=== PATIENT | male | born 1995 | race Caucasian/White ===

== ENCOUNTER → 2024-03-09 08:48 | Outpatient (REF) | payer BC, SELFPAY ==
[2024-03-09 09:51] LABS: % Basophils 0.7 % (0-2); % Eosinophils 1.4 % (0-6); % Immature Granulocytes 0.2 % (0-0.5); % Lymphocytes 38.6 % (20.5-51.1); % Monocytes 4.8 % (1.7-9.3); % Neutrophils 54.3 % (42.2-75.2); Absolute Eosinophils 0.1 10^3/uL (0-0.7); Absolute Lymphocytes 1.6 10^3/uL (1.2-3.4); Absolute Monocytes 0.2 10^3/uL (0.1-0.6); Absolute Neutrophils 2.3 10^3/uL (1.4-6.5); Hematocrit 44.2 % (39.0-52.0); Hemoglobin 15.5 g/dL (13.0-18.0); Mean Corp Hgb Conc. 35.1 g/dL (33.0-37.0); Mean Corpuscular Hgb 30.6 pg (27.0-31.0); Mean Corpuscular Volume 87.2 fL (80.0-94.0); Mean Platelet Volume 10.2 fL (7.4-10.4); Nucleated Red Blood Cells % 0 % (-); Platelet Count 202 10^3/uL (130-400); Red Blood Cell Count 5.07 10^6/uL (4.70-6.10); Red Cell Dist. Width 12.3 % (11.5-14.5); White Blood Cell Count 4.2 10^3/uL (4.8-10.8)
[2024-03-09 10:18] LABS: ALT (SGPT) 19 U/L (0-50); AST (SGOT) 24 U/L (17-59); Albumin 5.1 g/dl (3.5-5.0); Alkaline Phosphatase 51 U/L (38-126); Blood Urea Nitrogen 18 mg/dl (9-20); Calcium 9.7 mg/dl (8.4-10.2); Carbon Dioxide 28 mmol/L (22-30); Chloride 101 mmol/L (98-107); Glucose 85 mg/dl (70-99); HDL Cholesterol 58 mg/dl; LDL Cholesterol, Calculated 67 mg/dl; Potassium 4.6 mmol/L (3.5-5.1); Sodium 139 mmol/L (135-145); Total Bilirubin 1.5 mg/dl (0.2-1.3); Total Cholesterol 136 mg/dl (50-199); Total Protein 7.5 g/dl (6.3-8.2); Triglyceride 59 mg/dl (10-149); Very Low Density Lipoprotein 11 mg/dl (0-30); eGFR > 60.00
[2024-03-09 10:42] LABS: TSH 1.15 uIU/ml (0.47-4.68)
== END ==
LOC: REG 08:48
PROVIDERS: ATTENDING PHYSICIAN Physician Assistant Medical
DX: Z00.00 Encounter for general adult medical examination without abnormal findings (principal)
CPT/HCPCS: 36415; 80053; 80061; 84443; 85025

== ENCOUNTER → 2024-09-05 15:43 | Outpatient (REF) | payer BC, SELFPAY | LOC: CLAB 15:43 | PROVIDERS: ATTENDING PHYSICIAN Dermatology Dermatopathology | DX: B07.8 Other viral warts (principal); L53.8 Other specified erythematous conditions | CPT/HCPCS: 88305 ==

== ENCOUNTER 2024-10-05 07:46 | Emergency (ER) | payer BC, SELFPAY ==
[2024-10-05 07:49] VITALS: BP 108/82
[2024-10-05 08:24] LABS: COVID-19 Antigen Negative (Negative)
[2024-10-05] MEDS: AUGMENTIN 875 MG/125 MG 1 TABLET PO (08:59)
[2024-10-05] MEDS: TYLENOL 1000 MG PO (08:59)
--- NOTE | 2024-10-05 09:13 | ED.GENMED ---
Addendum entered and electronically signed by Queta Mccord PA-C 10/06/24 13:33:
HEP A AB POSITIVE
PT IS NOT SICK WITH VOMITING/DIARRHEA
HAD A GI VIRUS 6 WEEKS AGO BUT SYMPTOMS CLEARED
UNLIKELY TO BE FROM SPLASHED STAFFING [employer]NA[employer] WATER ON 10/05 - IT WOULD TAKE LONGER TO DEVELOP AB TO HEP A
HEP C NEG
HEP B S AB + = IMMUNTE
LFTS NORMAL
F/U WITH PCP
Original Note:
History of Present Illness
General
Chief Complaint: Cold/Flu/URI Symptoms
Source: patient and spouse
Exam Limitations: none
Time Seen by Provider: 10/05/24 08:46
Nursing documentation reviewed up to this point in time: agreed with
History of Present Illness
History of Present Illness:
28-year-old male presents with 2 days of headache fever neck pain cough sore throat he was exposed to finger buff sewer water cutting into a finger buff sewer pipe 4 hours prior to the start of his symptoms, no vomiting, use Motrin without much relief, no sick contacts,
spouse is an RN is concerned about hepatitis exposure said no jaundice,
Past History
Past History
ED Past Medical History: None
ED Past Surgical History: None
Social History
Tobacco: Non-smoker
Alcohol: None
Drug: None
Personal:
Living: with family
Employment: Employed
Review of Systems
Review of Systems
All Other Systems: Not applicable
Constitutional: Reports fever and fatigue
EENT: Reports sore throat
Respiratory: Reports cough
Cardiac: Reports no symptoms
ABD/GI: Denies abdominal pain
: Reports no symptoms
Musculoskeletal: Reports no symptoms
Skin: Reports no symptoms
Neurological: Reports headache
Phy Exam
Physical Exam
Physical Exam:
Physical Exam
General: no apparent distress, not acutely ill
Neck: No jaundice posterior pharynx is clear
Heart: s1/s2 regular rate and rhythm, no murmur. equal radial pulses.
Lungs: no acute respiratory distress. clear bilaterally
Abdomen: Not tender
Neuro: alert and oriented. no focal neurological deficits
Skin: no rash
Psychiatric: well kept. interactive and cooperative
Extremities: no edema.
Course
Orders/Labs/Results
Orders:
Orders
10/05/24 07:54
COVID-19 Antigen Urgent
Source: Nasal Swab
Influenza A+B Rapid Molecular Urgent
[facility] Source: Nasal Swab
Specimen Description:
10/05/24 08:55
Acetaminophen [Tylenol] 1,000 mg PO NOW STA
Amoxicillin 875 mg/Clav 125 mg [Augmentin 875 mg/125 mg] 1 tablet PO NOW STA
10/05/24 09:08
Comprehensive Metabolic Panel Urgent
Hepatitis A Antibody, Total Urgent
Hepatitis A IgM Antibody Urgent
Hepatitis B Core Ab, IgM Urgent
Hepatitis B Surface Antibody Urgent
Hepatitis B Surface Antigen Urgent
Hepatitis C Antibody Urgent
Vital Signs
Initial and Last Documented VS:
Initial Vital Signs
Temp Pulse Resp BP Pulse Ox
99.5 F 93 18 108/82 100
10/05/24 07:49 10/05/24 07:49 10/05/24 07:49 10/05/24 07:49 10/05/24 07:49
Last Documented Vital Signs
Temp Pulse Resp BP Pulse Ox
99.5 F 93 18 108/82 100
10/05/24 07:49 10/05/24 07:49 10/05/24 07:49 10/05/24 07:49 10/05/24 07:49
MDM/Problems Addressed
Differential Diagnosis Includes:
Viral syndrome, aspiration of fecal contents, sinusitis doubt [place] infection or pneumonia possible strep
MDM/Problems Addressed:
Fever headache cough sore throat
*Critical Care Note
Total Time (30-74mins, 75-104mins- exclusive of procedures): Not Applicable
Update Note
Update Note:
Update suspect viral syndrome, though swabs are negative symptoms started after exposure to finger buff sewer water reviewed with patient and spouse will start on some antibiotics empirically do some baseline hepatitis labs
ED Attending Note
-
Portions of this chart may have been created with voice recognition software.� Occasional wrong word or��sound alike� substitutions may have occurred due to the inherent limitations of voice recognition software.
Discharge Plan
Departure
Patient Disposition: Home (Routine Discharge)
Date of Disposition: 10/05/24
Time of Disposition: 09:07
Patient with high blood pressure during this ER visit?: No
Condition: Good
Discharge Problem:
Head ache
Instructions: Fever, Adult (DC), Viral Syndrome (DC), Headaches in adults
Prescriptions:
New
amoxicillin-pot clavulanate 875-125 mg tablet
1 tab PO BID Qty: 14 0RF
ibuprofen 600 mg tablet
600 mg PO Q8H PRN (Reason: fever or pain) Qty: 20 0RF
Referrals:
Trini Tinoco PA [Family Provider] - Follow up in 2-3 days
Interventions
Interventions:
*Risk Screen - Suicide Last Done: 10/05/24 08:46
*General Assessment Last Done: 10/05/24 08:46
*Neglect/Abuse Screening Last Done: 10/05/24 08:46
*ED COVID-19 Vaccine History Last Done: 10/05/24 08:46
ED- Pulmonary Assessment Last Done: 10/05/24 08:46
Discharge Date and Time
Print Language: SPANISH
[2024-10-05 09:28] VITALS: BP 112/77
[2024-10-05 09:43] LABS: ALT (SGPT) 21 U/L (0-50); AST (SGOT) 22 U/L (17-59); Albumin 4.5 g/dl (3.5-5.0); Alkaline Phosphatase 47 U/L (38-126); Blood Urea Nitrogen 15 mg/dl (9-20); Carbon Dioxide 29 mmol/L (22-30); Chloride 102 mmol/L (98-107); Glucose 92 mg/dl (70-99); Potassium 4.7 mmol/L (3.5-5.1); Sodium 138 mmol/L (135-145); Total Bilirubin 1.3 mg/dl (0.2-1.3); eGFR > 60.00
[2024-10-05 10:10] LABS: Hepatitis B Surface Antigen Negative (Negative)
[2024-10-05 10:27] LABS: Hepatitis A Antibody, Total Positive (Negative); Hepatitis B Surface Antibody Positive; Hepatitis C Antibody Negative (Negative)
[2024-10-05 12:11] LABS: Hepatitis A IgM Antibody Negative (Negative); Hepatitis B Core Ab, IgM Negative (Negative)
== END 2024-10-05 09:28 | disposition home or self-care (01) ==
LOC: EMR 07:46
PROVIDERS: Emergency Medicine; EMERGENCY PHYSICIAN Emergency Medicine; FAMILY PHYSICIAN Physician Assistant Medical
DX: R51.9 Headache, unspecified (principal); R05.9 Cough, unspecified; J02.9 Acute pharyngitis, unspecified; R50.9 Fever, unspecified
CPT/HCPCS: 99283; 80053; 86705; 86706; 86708; 86709; 86803; 87340; 87502; 87811

== ENCOUNTER → 2025-03-07 07:03 | Outpatient (REF) | payer BC, SELFPAY ==
[2025-03-07 07:51] LABS: Hematocrit 47.0 % (39.0-52.0); Hemoglobin 16.0 g/dL (13.0-18.0); Mean Corp Hgb Conc. 34.0 g/dL (33.0-37.0); Mean Corpuscular Volume 89.4 fL (80.0-94.0); Nucleated Red Blood Cells % 0 % (-); Platelet Count 183 10^3/uL (130-400); Red Cell Dist. Width 12.1 % (11.5-14.5)
[2025-03-07 08:24] LABS: ALT (SGPT) 19 U/L (0-50); AST (SGOT) 22 U/L (17-59); Albumin 4.9 g/dl (3.5-5.0); Alkaline Phosphatase 38 U/L (38-126); Blood Urea Nitrogen 17 mg/dl (9-20); Calcium 9.5 mg/dl (8.4-10.2); Carbon Dioxide 29 mmol/L (22-30); Chloride 105 mmol/L (98-107); Glucose 80 mg/dl (70-99); HDL Cholesterol 55 mg/dl; LDL Cholesterol, Calculated 75 mg/dl; Potassium 4.7 mmol/L (3.5-5.1); Sodium 138 mmol/L (135-145); Total Protein 7.5 g/dl (6.3-8.2); Very Low Density Lipoprotein 16 mg/dl (0-30); eGFR > 60.00
== END ==
LOC: REG 07:03
PROVIDERS: ATTENDING PHYSICIAN Nurse Practitioner Family
DX: Z00.00 Encounter for general adult medical examination without abnormal findings (principal)
CPT/HCPCS: 36415; 80053; 80061; 84443; 85025